=== PATIENT | female | born 1980 | race Caucasian/White ===

== ENCOUNTER 2016-12-18 11:09 | Emergency (ER) | payer SELFPAY ==
[2016-12-18 11:21] VITALS: TEMP 98.2
--- NOTE | 2016-12-18 11:23 | EDPHY ---
H & P Stated Complaint: sore throat, yellow eye discharge Time Seen by Provider: 12/18/16 11:23 - Personal History LMP (Females 10-55): 15-21 Days Ago Current Tetanus/Diphtheria Vaccine: Unsure Current Tetanus Diphtheria and Acellular Pertussis (TDAP): Unsure - Medical/Surgical History Hx Asthma: No Hx Chronic Respiratory Disease: No Hx Diabetes: No Hx Cardiac Disease: No Hx Renal Disease: No Hx Cirrhosis: No Hx Alcoholism: No Hx HIV/AIDS: No Hx Splenectomy or Spleen Trauma: No Other PMH: healthy - Social History Smoking Status: Never smoked Constitutional: Initial Vital Signs Temperature (C) 36.8 C 12/18/16 11:18 Heart Rate 85 12/18/16 11:18 Respiratory Rate 16 12/18/16 11:18 Blood Pressure 98/70 L 12/18/16 11:18 O2 Sat (%) 98 12/18/16 11:18 O2 Delivery Mode Room Air Allergies/Adverse Reactions: No Known Allergies Allergy (Unverified 12/18/16 11:17) Home Medications: Medication Instructions Recorded AZITHROMYCIN [Z-PACK] 250 mg PO DAILY #1 packet 12/18/16 Ofloxacin 0.3% [Ocuflox 0.3%] 1 drops OP QID #1 opht.btl 12/18/16 Medical Decision Making ED Course/Re-evaluation: CHIEF COMPLAINT: Sore throat, eye discharge. HISTORY OF PRESENT ILLNESS: The patient is a 36-year-old female who presents with sore throat and eye discharge that began 3 days ago. She woke up this morning with matted eyelids and crusty discharge. She denies vomiting, fever, or cough. REVIEW OF SYSTEMS: A 10 point review of systems was performed and is negative with the exception of the elements mentioned in the history of present illness. PHYSICAL EXAM: HR, BP, O2 Sat, RR. Temp noted General Appearance: Alert, well hydrated, appropriate, and non-toxic appearing. Head: Atraumatic without scalp tenderness or obvious injury Eyes: Pupils equal, round, reactive to light and accommodation, EOMI, no trauma. Conjunctival injection. Matted eyelids. Crusty discharge in corners of eyes. Ears: Clear bilaterally, no perforation, normal landmarks Nose: Atraumatic, no rhinorrhea, clear. Throat: There is mild erythema but no exudates, no lesions, normal tonsils, mucus membranes moist. Neck: Supple, 2+ carotid upstroke, nontender, no lymphadenopathy. Respiratory: No retractions, no distress, no wheezes, and no accessory muscle use. Lungs are clear to auscultation bilaterally. Cardiovascular: Regular rate and rhythm, no murmurs, rubs, or gallops. Bilateral carotid, radial, dorsalis pedis, and posterior tibial pulses intact. Good capillary refill all extremities. Gastrointestinal: Abdomen is soft, nontender, non-distended, no masses, no rebound, no guarding, no peritoneal signs. Musculoskeletal: Normal active ROM of all extremities, atraumatic. Neurological: Alert, appropriate, and interactive. The patient has normal DTRs and non-focal cranial nerves, motor, sensory, and cerebellar exam. Skin: No rashes, good turgor, no nodules on palpation. Past medical history: Denies. Past surgical history: Tonsillectomy. Family history:N/A. Social history: Here alone. DIFFERENTIAL DIAGNOSIS: The differential diagnosis includes but is not limited to conjunctivitis, viral syndrome, pharyngitis, strep throat. MEDICAL DECISION MAKIN-year-old female presents with 3 days of conjunctival injection and sore throat. This morning she had a large amount of crusty discharge. On exam her eyelids are matted and her conjunctiva are injected bilaterally. This is a classic conjunctivitis. We will treat her with antibiotic eye drops and oral antibiotic. She was given 40mg PO Prednisone in the ED to alleviate her sore throat. She is comfortable with this plan. Departure - Departure Disposition: Home, Routine, Self-Care Clinical Impression: Conjunctivitis Qualifiers: Conjunctivitis type: unspecified Laterality: bilateral Qualified Code(s): H10.9 - Unspecified conjunctivitis Condition: Good Instructions: Conjunctivitis (ED) Additional Instructions: Use the eye drops as instructed. Take the antibiotic as prescribed. Return for any serious worsening of condition. Referrals: NONE *PRIMARY CARE P,. [Primary Care Provider] - As per Instructions Prescriptions: AZITHROMYCIN [Z-PACK] 250 mg PO DAILY #1 packet Ofloxacin 0.3% [Ocuflox 0.3%] 1 drops OP QID #1 opht.btl Report Scribed for: Noe Fisher Report Scribed by: Kenny [email or web address] Date of Report: 12/18/16 Time of Report: 11:25
[2016-12-18] MEDS ORDERED: predniSONE 20 MG TAB PO ONE (11:32)
[2016-12-18 11:54] VITALS: BP 101/64; PULSE 71; RESP 18; O2SAT 97
== END 2016-12-18 11:45 | disposition home or self-care (01) ==
DX: H10.9 Unspecified conjunctivitis (principal)